=== PATIENT | female | born 1995 | race Caucasian/White ===

== ENCOUNTER 2024-02-18 12:36 | Emergency (ER) | payer SELFPAY ==
[~2024-02-18] VITALS: Ht 165.1 cm; Wt 59.0 kg
[2024-02-18 14:00] VITALS: BP 110/64; TEMP 98.2; O2SAT 98
== END 2024-02-18 14:01 | disposition home or self-care (01) ==
LOC: ER 12:53
DX: M79.661 Pain in right lower leg (principal)
CPT/HCPCS: 93971-TC